=== PATIENT | male | born 1970 | race Caucasian/White ===

== ENCOUNTER 2016-07-03 13:35 | Emergency (ER) | payer MEDICAID ==
[2016-07-03] MEDS ORDERED: Sodium Chloride 0.9% 10 ML Syringe FLUSH PRN (13:43)
--- NOTE | 2016-07-03 13:43 | EDM.PDOC ---
ED HPI GENERAL MEDICAL PROBLEM - General Chief Complaint: Chest Pain Stated Complaint: CHEST PAIN, NOT FEELING WELL Time Seen by Provider: 07/03/16 13:43 Source of Information: Reports: Patient, RN, RN notes reviewed History Limitations: Reports: No Limitations - History of Present Illness INITIAL COMMENTS - FREE TEXT/NARRATIVE: Complaining of generalized chest pain/pressure on and off x3 weeks. Today patient ate brats for lunch and 30-60 minutes later the chest pain returned and was worse. Admits to a mild SOB and very slight nausea. The pain is described as a pressure, currently rated 3/10. The nausea is currently gone. Admits to left arm numness when the pain was at maximal intensity. Denies rdiating pain. Onset: today Location: Reports: chest Quality: Reports: Ache Severity: moderate Improves with: Reports: None Worsens with: Reports: None Associated Symptoms: Reports: no other symptoms Chest Pain Score (Numeric/FACES): 3 - Related Data Allergies Allergy/AdvReac Type Severity Reaction Status Date / Time Penicillins Allergy Other Verified 07/03/16 13:55 Home Meds: Home Meds . [No Known Home Meds] 07/03/16 [History] Social & Family History - Family History Family Medical History: Noncontributory - Tobacco Use Smoking Status *Q: Former Smoker Tobacco Use Within Last Twelve Months: No Month Tobacco Last Used: 2007 Smoking Cessation Information Provided To Patient: Yes - Alcohol Use Alcohol Use History: Yes Date/Time of Last Drink Comment: 2007 Alcohol Use in Last Twelve Months: No ED ROS GENERAL - Review of Systems Review Of Systems: ROS reveals no pertinent complaints other than HPI. ED EXAM, GENERAL - Physical Exam Exam: See Below Exam Limited By: No Limitations General Appearance: Alert, WD/WN, No Apparent Distress Eye Exam: Bilateral Eye: Normal Inspection Ears: Normal External Exam, Normal Canal, Hearing Grossly Normal, Normal TMs Nose: Normal Inspection, Normal Mucosa, No Blood Throat/Mouth: Normal Inspection, Normal Lips, Normal Teeth, Normal Gums, Normal Oropharynx, Normal Voice, No Airway Compromise Head: Atraumatic, Normocephalic Neck: Normal Inspection, Supple, Non-Tender, Full Range of Motion Respiratory/Chest: No Respiratory Distress, Lungs Clear, Normal Breath Sounds, No Accessory Muscle Use, Chest Non-Tender Cardiovascular: Normal Peripheral Pulses, Regular Rate, Rhythm, No Edema, No Gallop, No JVD, No Murmur, No Rub GI/Abdominal: Normal Bowel Sounds, Soft, Non-Tender, No Organomegaly, No Distention, No Abnormal Bruit, No Mass Back Exam: Normal Inspection, Full Range of Motion, NT Extremities: Normal Inspection, Normal Range of Motion, Non-Tender, Normal Capillary Refill, No Pedal Edema Neurological: Alert, Oriented, CN II-XII Intact, Normal Cognition, Normal Gait, Normal Reflexes, No Motor/Sensory Deficits Psychiatric: Anxious Skin Exam: Warm, Dry, Intact, Normal Color, No Rash EKG INTERPRETATION EKG Date: 07/03/16 Time: 13:45 Rhythm: other (sinus rhythm) Rate (beats/min): 58 [place]: normal P-wave: present QRS: normal ST-T: normal QT: normal EKG Interpretation Comments: EKG #2 at 1746 shows sinus rhythm at a rate of 55 with multiple premature complexes. Course - Vital Signs Last Recorded V/S: Last Vital Signs Temp 36.8 C 07/03/16 15:29 Pulse 44 L 07/03/16 16:40 Resp 16 07/03/16 16:40 BP 118/80 07/03/16 16:40 Pulse Ox 97 07/03/16 16:40 - Orders/Labs/Meds Orders: Active Orders 24 hr Category Date Time Status EKG 12 Lead [EKG Documentation Completion] [RC] ONETIME Care 07/03/16 17:40 Active EKG 12 Lead [EKG Documentation Completion] [RC] STAT Care 07/03/16 13:43 Active Peripheral IV Care [RC] . DIRECTED Care 07/03/16 13:44 Active Sodium Chloride 0.9% [Saline Flush] Med 07/03/16 13:43 Active 10 ml FLUSH ASDIRECTED PRN Peripheral IV Insertion Adult [OM.PC] Stat Oth 07/03/16 13:43 Ordered Medication Orders Sodium Chloride (Saline Flush) 10 ml FLUSH ASDIRECTED PRN PRN Reason: Keep Vein Open Last Admin: 07/03/16 13:55 Dose: 10 ml Labs: Laboratory Tests 07/03/16 07/03/16 07/03/16 Range/Units 13:53 13:53 13:53 WBC 6.6 (5.0-10.0) 10^3/uL RBC 4.70 (4.6-6.2) 10^6/uL Hgb 13.8 L (14.0-18.0) g/dL Hct 40.4 (40.0-54.0) % MCV 86.0 (80-100) fL MCH 29.4 (27.0-34.0) pg MCHC 34.2 (33.0-35.0) g/dL Plt Count 313 (150-450) 10^3/uL Neut % (Auto) 45.9 (42.2-75.2) % Lymph % (Auto) 38.2 (20.5-50.1) % [place] % (Auto) 12.4 H (2-8) % Eos % (Auto) 2.3 (1.0-3.0) % Baso % (Auto) 1.2 H (0.0-1.0) % PT 10.4 (9.0-12.0) SEC INR 1.0 (0.9-1.2) APTT 26.2 (22.0-34.0) SEC D-Dimer, Quantitative (0-400) ng/mL Sodium 134 L (135-145) mmol/L Potassium 3.5 L (3.6-5.0) mmol/L Chloride 101 (101-111) mmol/L Carbon Dioxide 27.0 (21.0-31.0) mmol/L Anion Gap 9.5 BUN 17 (7-18) mg/dL Creatinine 1.0 (0.6-1.3) mg/dL Est Cr Clr Drug Dosing 91.32 mL/min Estimated GFR (MDRD) > 60 BUN/Creatinine Ratio 17.00 Glucose 92 (74-105) mg/dL Calcium 9.0 (8.4-10.2) mg/dl Total Bilirubin 0.8 (0.2-1.0) mg/dL AST 22 (10-42) IU/L ALT 21 (10-60) IU/L Alkaline Phosphatase 44 (42-121) IU/L Troponin I < 0.02 (0.00-0.02) ng/ml Total Protein 6.4 L (6.7-8.2) g/dl Albumin 4.2 (3.2-5.5) g/dl Globulin 2.2 Albumin/Globulin Ratio 1.91 Amylase 60 (28-100) U/L Lipase 19 L (22-51) U/L Urine Color (YELLOW) Urine Appearance (CLEAR) Urine pH (5.0-9.0) Ur Specific [place] (1.005-1.030) Urine Protein (NEGATIVE) Urine Glucose (UA) (NEGATIVE) Urine Ketones (NEGATIVE) Urine Occult Blood (NEGATIVE) Urine Nitrite (NEGATIVE) Urine Bilirubin (NEGATIVE) Urine Urobilinogen (0.2-1.0) mg/dL Ur Leukocyte Esterase (NEGATIVE) Urine RBC /HPF Urine WBC (0-5/HPF) /HPF Urine Mucus /LPF Urine Opiates Screen (NEGATIVE) Ur Oxycodone Screen (NEGATIVE) Urine Methadone Screen (NEGATIVE) Ur Barbiturates Screen (NEGATIVE) U Tricyclic Antidepress (NEGATIVE) Ur Phencyclidine Scrn (NEGATIVE) Ur Amphetamine Screen (NEGATIVE) U Methamphetamines Scrn (NEGATIVE) Urine MDMA Screen (NEGATIVE) U Benzodiazepines Scrn (NEGATIVE) Urine Cocaine Screen (NEGATIVE) U Marijuana (THC) Screen (NEGATIVE) Ethyl Alcohol < 5 mg/dL 07/03/16 07/03/16 07/03/16 Range/Units 13:53 14:49 14:49 WBC (5.0-10.0) 10^3/uL RBC (4.6-6.2) 10^6/uL Hgb (14.0-18.0) g/dL Hct (40.0-54.0) % MCV (80-100) fL MCH (27.0-34.0) pg MCHC (33.0-35.0) g/dL Plt Count (150-450) 10^3/uL Neut % (Auto) (42.2-75.2) % Lymph % (Auto) (20.5-50.1) % [place] % (Auto) (2-8) % Eos % (Auto) (1.0-3.0) % Baso % (Auto) (0.0-1.0) % PT (9.0-12.0) SEC INR (0.9-1.2) APTT (22.0-34.0) SEC D-Dimer, Quantitative < 100 (0-400) ng/mL Sodium (135-145) mmol/L Potassium (3.6-5.0) mmol/L Chloride (101-111) mmol/L Carbon Dioxide (21.0-31.0) mmol/L Anion Gap BUN (7-18) mg/dL Creatinine (0.6-1.3) mg/dL Est Cr Clr Drug Dosing mL/min Estimated GFR (MDRD) BUN/Creatinine Ratio Glucose (74-105) mg/dL Calcium (8.4-10.2) mg/dl Total Bilirubin (0.2-1.0) mg/dL AST (10-42) IU/L ALT (10-60) IU/L Alkaline Phosphatase (42-121) IU/L Troponin I (0.00-0.02) ng/ml Total Protein (6.7-8.2) g/dl Albumin (3.2-5.5) g/dl Globulin Albumin/Globulin Ratio Amylase (28-100) U/L Lipase (22-51) U/L Urine Color Yellow (YELLOW) Urine Appearance Clear (CLEAR) Urine pH 7.0 (5.0-9.0) Ur Specific [place] 1.010 (1.005-1.030) Urine Protein Negative (NEGATIVE) Urine Glucose (UA) Negative (NEGATIVE) Urine Ketones Negative (NEGATIVE) Urine Occult Blood Negative (NEGATIVE) Urine Nitrite Negative (NEGATIVE) Urine Bilirubin Negative (NEGATIVE) Urine Urobilinogen 0.2 (0.2-1.0) mg/dL Ur Leukocyte Esterase Negative (NEGATIVE) Urine RBC Not seen /HPF Urine WBC Not seen (0-5/HPF) /HPF Urine Mucus Rare /LPF Urine Opiates Screen Negative (NEGATIVE) Ur Oxycodone Screen Negative (NEGATIVE) Urine Methadone Screen Negative (NEGATIVE) Ur Barbiturates Screen Negative (NEGATIVE) U Tricyclic Antidepress Negative (NEGATIVE) Ur Phencyclidine Scrn Negative (NEGATIVE) Ur Amphetamine Screen Negative (NEGATIVE) U Methamphetamines Scrn Negative (NEGATIVE) Urine MDMA Screen Negative (NEGATIVE) U Benzodiazepines Scrn Negative (NEGATIVE) Urine Cocaine Screen Negative (NEGATIVE) U Marijuana (THC) Screen Negative (NEGATIVE) Ethyl Alcohol mg/dL 07/03/16 Range/Units 18:12 WBC (5.0-10.0) 10^3/uL RBC (4.6-6.2) 10^6/uL Hgb (14.0-18.0) g/dL Hct (40.0-54.0) % MCV (80-100) fL MCH (27.0-34.0) pg MCHC (33.0-35.0) g/dL Plt Count (150-450) 10^3/uL Neut % (Auto) (42.2-75.2) % Lymph % (Auto) (20.5-50.1) % [place] % (Auto) (2-8) % Eos % (Auto) (1.0-3.0) % Baso % (Auto) (0.0-1.0) % PT (9.0-12.0) SEC INR (0.9-1.2) APTT (22.0-34.0) SEC D-Dimer, Quantitative (0-400) ng/mL Sodium (135-145) mmol/L Potassium (3.6-5.0) mmol/L Chloride (101-111) mmol/L Carbon Dioxide (21.0-31.0) mmol/L Anion Gap BUN (7-18) mg/dL Creatinine (0.6-1.3) mg/dL Est Cr Clr Drug Dosing mL/min Estimated GFR (MDRD) BUN/Creatinine Ratio Glucose (74-105) mg/dL Calcium (8.4-10.2) mg/dl Total Bilirubin (0.2-1.0) mg/dL AST (10-42) IU/L ALT (10-60) IU/L Alkaline Phosphatase (42-121) IU/L Troponin I < 0.02 (0.00-0.02) ng/ml Total Protein (6.7-8.2) g/dl Albumin (3.2-5.5) g/dl Globulin Albumin/Globulin Ratio Amylase (28-100) U/L Lipase (22-51) U/L Urine Color (YELLOW) Urine Appearance (CLEAR) Urine pH (5.0-9.0) Ur Specific [place] (1.005-1.030) Urine Protein (NEGATIVE) Urine Glucose (UA) (NEGATIVE) Urine Ketones (NEGATIVE) Urine Occult Blood (NEGATIVE) Urine Nitrite (NEGATIVE) Urine Bilirubin (NEGATIVE) Urine Urobilinogen (0.2-1.0) mg/dL Ur Leukocyte Esterase (NEGATIVE) Urine RBC /HPF Urine WBC (0-5/HPF) /HPF Urine Mucus /LPF Urine Opiates Screen (NEGATIVE) Ur Oxycodone Screen (NEGATIVE) Urine Methadone Screen (NEGATIVE) Ur Barbiturates Screen (NEGATIVE) U Tricyclic Antidepress (NEGATIVE) Ur Phencyclidine Scrn (NEGATIVE) Ur Amphetamine Screen (NEGATIVE) U Methamphetamines Scrn (NEGATIVE) Urine MDMA Screen (NEGATIVE) U Benzodiazepines Scrn (NEGATIVE) Urine Cocaine Screen (NEGATIVE) U Marijuana (THC) Screen (NEGATIVE) Ethyl Alcohol mg/dL Meds: Medications Generic Name Dose Route Start Last Admin Trade Name Freq PRN Reason Stop Dose Admin Sodium Chloride 10 ml 07/03/16 13:43 07/03/16 13:55 Saline Flush FLUSH 10 ml ASDIRECTED PRN Administration Keep Vein Open Discontinued Medications Generic Name Dose Route Start Last Admin Trade Name Freq PRN Reason Stop Dose Admin Aspirin 324 mg 07/03/16 13:44 07/03/16 13:53 Aspirin PO 07/03/16 13:45 324 mg ONETIME ONE Administration Nitroglycerin 0.4 mg 07/03/16 13:44 07/03/16 13:54 Nitrostat SL 07/03/16 13:45 0.4 mg Q5M ONE Administration - Radiology Interpretation Free Text/Narrative:: Chest x-ray: No acute process per rad report. - Re-Assessments/Exams Free Text/Narrative Re-Assessment/Exam: 07/03/16 18:49 I explained the exam findings, results of all diagnostic tests, working diagnosis, and any potential or additionally considered diagnoses, treatment/ disposition plan, self/home care instructions, rational for the diagnosis/ treatment plan/disposition plan, anticipated course of illness, and follow up instructions to the pt and/or pts family or guardian. The pt and/or pts family or guardian acknowledges understanding of the above explanation(s), and of the signs and symptoms which should prompt the return of the pt to the ER should those or any other concerning symptoms develop. Departure - Departure Time of Disposition: 18:49 Disposition: Home, Self-Care 01 Condition: good Clinical Impression: Atypical chest pain, Esophageal spasm Instructions: Nonspecific Chest Pain, [id number], Esophageal Spasm Forms: ED Department Discharge Additional Instructions: [id number] Omeprazole, follow directions on package. Return to clinic next week. Follow up in ER if chest pain recurs. - My Orders Last 24 Hours: My Active Orders 07/03/16 13:43 EKG 12 Lead [EKG Documentation Completion] [RC] STAT Sodium Chloride 0.9% [Saline Flush] 10 ml FLUSH ASDIRECTED PRN Peripheral IV Insertion Adult [OM.PC] Stat 07/03/16 13:44 Peripheral IV Care [RC] . DIRECTED 07/03/16 17:40 EKG 12 Lead [EKG Documentation Completion] [RC] ONETIME - Assessment/Plan Last 24 Hours: My Active Orders 07/03/16 13:43 EKG 12 Lead [EKG Documentation Completion] [RC] STAT Sodium Chloride 0.9% [Saline Flush] 10 ml FLUSH ASDIRECTED PRN Peripheral IV Insertion Adult [OM.PC] Stat 07/03/16 13:44 Peripheral IV Care [RC] . DIRECTED 07/03/16 17:40 EKG 12 Lead [EKG Documentation Completion] [RC] ONETIME
[2016-07-03] MEDS ORDERED: Nitroglycerin 0.4 MG Tab.SL SL ONE (13:44)
[2016-07-03] MEDS ORDERED: Aspirin 81 MG Tab.Chew PO ONE (13:44)
[2016-07-03 14:20] LABS: CHLORIDE,CL 101 mmol/L (101-111); SODIUM,NA 134 mmol/L (135-145)
--- NOTE | 2016-07-03 14:31 | CR ---
Clinical history: 45-year-old male with chest pain. Interpretation: AP portable chest film negative. Normal cardiac silhouette and bony thorax. (External hand icer leads). No cephalization of vascular flow, signs of alveolar edema or dependent pleural effusion. No lung mass, hilar lymphadenopathy or focal lobar pneumonia. No atelectasis/collapse. No pneumothorax.
[2016-07-03 17:03] VITALS: BP 118/80
--- NOTE | 2016-07-07 11:57 | EKG ---
07/03/2016 - RUBEN PADILLA I reviewed the EKG and agree with the machine's reading. [facility] /[id number]
--- NOTE | 2016-07-07 13:38 | EKG ---
07/03/2016 - RUBEN PAIDLLA - TIME: 1345 hours. I reviewed the EKG and agree with the machine's reading. [facility] /[id number]
== END 2016-07-03 19:17 | disposition home or self-care (01) ==
LOC: DL.ED 13:35
DX: K22.4 Dyskinesia of esophagus (principal); Z87.891 Personal history of nicotine dependence
CPT/HCPCS: 36415; 71010; 80053; 80305; 81001; 82150; 83690; 84484; 85025; 85379; 85610; 85730; 93005; 99285; A9270; G0480; J7050

== ENCOUNTER 2023-09-11 12:16 | Inpatient (IN) | payer BC, OTHER ==
[2023-09-11 16:34] LABS: BASOPHILS PERCENT AUTO 0.3 % (0.0-1.0); HEMATOCRIT 43.5 % (40.0-54.0); HEMOGLOBIN 14.3 g/dL (14.0-18.0); LYMPHOCYTES PERCENT AUTO 5.7 % (20.5-50.1); MEAN CORPUSCULAR HEMOGLOBIN 28.9 pg (27.0-34.0); MEAN CORPUSCULAR HGB CONC 32.9 g/dL (33.0-35.0); MEAN CORPUSCULAR VOLUME 87.9 fL (80-100); MONOCYTES PERCENT AUTO 5.7 % (2-8); NEUTROPHILS PERCENT AUTO 88.3 % (42.2-75.2); PLATELET COUNT,PLT 362 10^3/uL (150-450); RED BLOOD CELL COUNT 4.95 10^6/uL (4.6-6.2); WHITE BLOOD CELL COUNT,WBC 18.4 10^3/uL (5.0-10.0)
[2023-09-11] MEDS: Sodium Chloride 0.9% 1,000 ML IV ONE (16:52)
[2023-09-11] MEDS: Sodium Chloride 0.9% 10 ML Syringe FLUSH PRN (16:52)
[2023-09-11 17:00] LABS: A/G RATIO 1.1; ALBUMIN 3.9 g/dL (3.4-5.0); ANION GAP 15.3 mEq/L (7-13); BILIRUBIN TOTAL 0.6 mg/dL (0.2-1.0); BUN/CREATININE RATIO 16.4 (No establ ref range); C-REACTIVE PROTEIN 3.6 ng/dL (<=0.50); CALCIUM 9.6 mg/dL (8.5-10.1); CREATININE 1.1 mg/dL (0.70-1.30); EST CRCL DRUG DOSING (CG) 73.41 mL/min; POTASSIUM,K 4.3 mmol/L (3.5-5.1); PROTEIN TOTAL,TP 7.6 g/dL (6.4-8.2)
[2023-09-11 17:01] LABS: LACTIC ACID 1.2 mmol/L (0.4-2.0)
[2023-09-11] MEDS: Vancomycin 1.75 GM in Sodium Chloride 0.9% 500 ML IV ONE (17:03)
[2023-09-11] MEDS: Ketorolac 30 MG/ML SDV IVPUSH ONE (17:03)
[2023-09-11] MEDS ORDERED: Magnesium Hydroxide 400 MG/5 ML Susp 30 ML Cup PO PRN (18:19)
[2023-09-11] MEDS ORDERED: Polyethylene Glycol 3350 Powder 17 GM Packet PO PRN (18:19)
[2023-09-11] MEDS ORDERED: Albuterol/Ipratropium 3.0-0.5 MG/3 ML Neb Soln NEB PRN (18:19)
[2023-09-11] MEDS ORDERED: Ondansetron 4 MG/2 ML SDV IVPUSH PRN (18:19)
[2023-09-11] MEDS ORDERED: Sennosides/Docusate Sodium 50-8.6 MG Tab PO PRN (18:19)
[2023-09-11] MEDS ORDERED: Acetaminophen/oxyCODONE 325-5 MG Tab PO PRN (18:19)
[2023-09-11] MEDS ORDERED: Promethazine 25 MG/ML SDV IM PRN (18:19)
[2023-09-11] MEDS ORDERED: HYDROmorphone 0.5 MG/0.5 ML Syringe IVPUSH PRN (18:19)
[2023-09-11] MEDS ORDERED: hydrALAZINE 20 MG/ML SDV IVPUSH PRN (18:21)
[2023-09-11] MEDS ORDERED: Metoprolol Tartrate 5 MG/5 ML SDV IVPUSH PRN (18:21)
[2023-09-11] MEDS: Dexamethasone 4 MG/ML SDV IVPUSH ONE (19:50)
[2023-09-11] MEDS: cefTRIAXone 2 GM Vial IVPUSH ONE (19:50)
[2023-09-11] MEDS: Famotidine 20 MG/2 ML SDV IVPUSH ONE (19:51)
[2023-09-11] MEDS: diphenhydrAMINE 50 MG/ML SDV IVPUSH ONE (19:51)
[2023-09-11] MEDS: Acetaminophen 325 MG Tab PO PRN (20:12)
[2023-09-12 05:40] LABS: BASOPHILS PERCENT AUTO 0.2 % (0.0-1.0); HEMATOCRIT 38.7 % (40.0-54.0); HEMOGLOBIN 12.8 g/dL (14.0-18.0); LYMPHOCYTES PERCENT AUTO 6.3 % (20.5-50.1); MEAN CORPUSCULAR HGB CONC 33.1 g/dL (33.0-35.0); MEAN CORPUSCULAR VOLUME 87.8 fL (80-100); NEUTROPHILS PERCENT AUTO 88.5 % (42.2-75.2); PLATELET COUNT,PLT 337 10^3/uL (150-450); RED BLOOD CELL COUNT 4.41 10^6/uL (4.6-6.2); WHITE BLOOD CELL COUNT,WBC 11.5 10^3/uL (5.0-10.0)
[2023-09-12 06:11] LABS: ALBUMIN 2.9 g/dL (3.4-5.0); BILIRUBIN TOTAL 0.3 mg/dL (0.2-1.0); BUN/CREATININE RATIO 17.3 (No establ ref range); C-REACTIVE PROTEIN 9.65 ng/dL (<=0.50); CALCIUM 8.8 mg/dL (8.5-10.1); CREATININE 0.98 mg/dL (0.70-1.30); EST CRCL DRUG DOSING (CG) 82.4 mL/min; MAGNESIUM 1.7 mg/dL (1.8-2.4); PROTEIN TOTAL,TP 6.3 g/dL (6.4-8.2)
[2023-09-12 06:16] LABS: A/G RATIO 0.85
[2023-09-12] MEDS: Famotidine 20 MG Tab PO SCH (09:16)
[2023-09-12] MEDS: cefTRIAXone 1 GM Vial IVPUSH SCH (09:18)
[2023-09-12] MEDS: guaiFENesin/Dextromethorphan 100-10 MG/5 ML Soln 5 ML Cup PO PRN (09:23)
[2023-09-12] MEDS: Enoxaparin 40 MG/0.4 ML Syringe SUBCUT SCH (09:26)
[2023-09-12] MEDS: Magnesium Sulfate/Water 2 GM in Premix Bag 1 BAG IV ONE (10:28)
[2023-09-12] MEDS: predniSONE 20 MG Tab PO ONE (10:37)
[2023-09-12] MEDS: Furosemide 40 MG Tab PO ONE (10:37)
[2023-09-12] MEDS: Temazepam 15 MG Cap PO PRN (21:57)
[2023-09-13 06:24] LABS: BASOPHILS PERCENT AUTO 0.5 % (0.0-1.0); EOSINOPHILS PERCENT AUTO 1.4 % (1.0-3.0); HEMATOCRIT 37.1 % (40.0-54.0); MEAN CORPUSCULAR HEMOGLOBIN 28.7 pg (27.0-34.0); MEAN CORPUSCULAR HGB CONC 32.3 g/dL (33.0-35.0); MEAN CORPUSCULAR VOLUME 88.8 fL (80-100); MONOCYTES PERCENT AUTO 15.7 % (2-8); NEUTROPHILS PERCENT AUTO 60.4 % (42.2-75.2); PLATELET COUNT,PLT 330 10^3/uL (150-450); RED BLOOD CELL COUNT 4.18 10^6/uL (4.6-6.2)
[2023-09-13 06:41] LABS: HEMOGLOBIN A1C 5.3 % (<5.7)
[2023-09-13 06:52] LABS: ALBUMIN 2.9 g/dL (3.4-5.0); ANION GAP 12.7 mEq/L (7-13); BILIRUBIN TOTAL 0.2 mg/dL (0.2-1.0); BUN/CREATININE RATIO 15.7 (No establ ref range); C-REACTIVE PROTEIN 7.16 ng/dL (<=0.50); CALCIUM 8.7 mg/dL (8.5-10.1); CREATININE 0.83 mg/dL (0.70-1.30); EST CRCL DRUG DOSING (CG) 97.29 mL/min; MAGNESIUM 1.8 mg/dL (1.8-2.4); POTASSIUM,K 3.7 mmol/L (3.5-5.1); PROTEIN TOTAL,TP 6.3 g/dL (6.4-8.2); T4 FREE 1.09 ng/dL (0.76-1.46); TSH ULTRASENSITIVE 0.81 uIU/mL (0.36-3.74)
[2023-09-13 06:59] LABS: A/G RATIO 0.85
[2023-09-13] MEDS: Furosemide 40 MG Tab PO SCH (09:08)
[2023-09-13] MEDS: predniSONE 20 MG Tab PO SCH (09:08)
[2023-09-13 16:44] VITALS: BP 114/58; PULSE 48
== END 2023-09-13 18:40 | disposition home or self-care (01) | DRG 603 ==
LOC: DL.ED 12:16 → DL.MS 18:06
PROVIDERS: ADMIT Internal Medicine; ATTEND Internal Medicine
DX: L03.116 Cellulitis of left lower limb (principal); E83.42 Hypomagnesemia; N52.9 Male erectile dysfunction, unspecified; D72.829 Elevated white blood cell count, unspecified; R73.9 Hyperglycemia, unspecified; Z88.0 Allergy status to penicillin; Z79.899 Other long term (current) drug therapy
CPT/HCPCS: 36415; 80053; 80202; 83036; 83605; 83735; 84439; 84443; 85025; 86140; 87040; 93971; 96365; 96375; 99284-25; A9270-GY; J0696; J1100; J1200; J1885; J3370; J3475; J3490; J7030; J7040; J7050; J7512